=== PATIENT | male | born 1990 | race Caucasian/White ===

== ENCOUNTER 2019-04-27 18:33 | Emergency (ER) | payer OTHER, SELFPAY ==
[2019-04-27 18:35] VITALS: BP 145/89; PULSE 97; RESP 21; TEMP 37.1; O2SAT 100; BMI 21.7
[2019-04-27] MEDS: SODIUM CHLORIDE 0.9% 1,000 ML 1000 ML IV (18:58)
[2019-04-27 19:03] LABS: Add Manual Diff / Slide Review NO; Basophils Absolute Auto 100 /uL (0-100); Basophils Percent Auto 0.9 % (0-2); Eosinophils Absolute Auto 200 /uL (0-450); Eosinophils Percent Auto 1.6 % (2-4); Hematocrit 44.5 % (41-53); Hemoglobin 15.1 g/dL (13.5-17.5); Lymphocytes Absolute Auto 2100 /uL (1100-4500); Lymphocytes Percent Auto 21.6 % (25-40); Mean Corpuscular HGB Conc 33.8 % (30-36); Mean Corpuscular Hemoglobin 29.8 PG (26-34); Monocytes Absolute Auto 800 /uL (0-900); Monocytes Percent Auto 7.9 % (3-14); Neutrophils Absolute Auto 6700 /uL (1500-7000); Platelet Count 275 X10^3/uL (150-400); Red Blood Cell Count 5.06 X10^6/uL (4.5-5.9); Red Cell Distribution Width 12.5 % (11.6-14.8); White Blood Cell Count 9.8 X10^3/uL (4.5-11.0)
--- NOTE | 2019-04-27 19:08 | ED_ITS ---
HPI - Syncope General Chief Complaint: Syncope Stated Complaint: loss conciousness Time Seen by Provider: 04/27/19 19:08 Source: patient and family Mode of arrival: ambulatory Limitations: no limitations History of Present Illness HPI narrative: 28-year-old male here with friends for evaluation after prior to arrival he had what appeared to be a syncopal event. Patient states that he was sitting at a table ready to eat dinner. He stated that he started to feel hot. He stated the next thing he remembers was other his friends asking him if he was okay. He denies any other associated symptoms to include chest pain or palpitations or ringing in his ears. No vomiting. He did not fall out of his chair. No loss of bowel or bladder. Did not bite his tongue. He has no prior history of seizures. His friends state that the event lasted 30-45 seconds but they are unsure the exact time. Patient states that he felt like he was back to normal very quickly after the event. He has never had anything like this before. The time my evaluation patient had no symptoms. Related Data Allergies Allergy/AdvReac Type Severity Reaction Status Date / Time No Known Drug Allergies Allergy Verified 04/27/19 18:42 Review of Systems Constitutional Denies chills, Denies fever(s), Denies headache(s), Denies lethargy and Denies malaise Eyes Denies change in vision ENT Ears, Nose, Mouth, and Throat: Reports dizziness and Denies headache(s) Cardiovascular Denies chest pain, Reports diaphoresis (Prior to the event), Reports syncope, Denies rapid heart rate, Denies edema, Denies irregular heart rhythm, Reports lightheadedness (Prior to the event), Denies palpitations, Denies dyspnea and Denies slow heart rate Respiratory Denies cough, Denies pain with cough, Denies dyspnea and Denies wheezing Gastrointestinal Gastrointestinal: Denies abdominal pain, Denies nausea and Denies vomiting Musculoskeletal Denies myalgias and Denies arthralgias Integumentary/Breasts Denies rash Neurologic Reports dizziness, Reports syncope, Denies headache(s), Denies convulsions and Denies paresthesias Endocrine Denies palpitations Hematologic/Lymphatic Denies easy bleeding and Denies easy bruising Allergic/Immunologic Denies wheezing [facility] Medical History Patient denies medical problems (Acute) Social History Smoking Status: Never smoker Social History Smoking Status: Never smoker Exam Initial Vital Signs Initial Vital Signs: Vital Signs Temperature 98.7 F 04/27/19 18:35 Pulse Rate 97 H 04/27/19 18:35 Respiratory Rate 21 04/27/19 18:35 Blood Pressure 145/89 H 04/27/19 18:35 Pulse Oximetry 100 04/27/19 18:35 Const General: cooperative, healthy appearing, comfortable, well developed, well groomed and No acute distress Orientation: alert and oriented x3 HENMT Head: normal to inspection and normocephalic Eyes Pupils: PERRL EOM: EOM intact bilaterally Resp Effort & Inspection: normal respiratory effort Auscultation: clear to auscultation bilaterally Cardio Rate: regular rate Rhythm: regular rhythm GI Inspection: non-distended Palpation: soft, No firm and No tender Skin Lesions: no lesions Rashes: no rashes Neuro General: alert, awake and oriented x3 Cranial Nerves: CN's II-XI intact bilaterally Cognition: normal cognition Speech: speech normal Gait: normal gait Motor: muscle tone normal throughout Sensory Exam: no sensory deficits noted Extrem General: normal to inspection, capillary refill normal and No edema Psych Appearance: grossly normal and well kempt Scores GCS Hasty coma scale eye opening: Spontaneous Jimmy coma scale verbal response: Orientated Hasty coma scale motor response: Obey commands Hasty coma scale total score: 15 Course Orders Ordered: ED Orders 04/27/19 18:36 EKG-12 Lead Stat 04/27/19 18:50 Complete Blood Count AUTO DIFF Stat Comprehensive Metabolic Panel Stat Troponin & CK Cardiac Panel Stat Discontinued Medications Sodium Chloride (Normal Saline 0.9%) 1,000 mls @ 1,000 mls/hr IV BOLUS ONE Stop: 04/27/19 19:43 Last Infusion: 04/27/19 20:00 Dose: 0 mls/hr Admin: 04/27/19 18:58 Dose: 1,000 mls/hr Vital Signs - 8 hr 04/27/19 18:35 04/27/19 19:30 04/27/19 20:01 Temperature 98.7 F 98.8 F Pulse Rate 97 H 89 86 Respiratory Rate 21 14 18 Blood Pressure 145/89 H 140/91 H Blood Pressure [Right Arm] 140/91 H Pulse Oximetry 100 100 100 MDM - Syncope Lab Data Attestation: I reviewed the patient's lab results. Result diagrams: 04/27/19 18:50 04/27/19 18:50 Lab Results 04/27/19 04/27/19 Range/Units 18:50 18:50 WBC 9.8 (4.5-11.0) X10^3/uL RBC 5.06 (4.5-5.9) X10^6/uL Hgb 15.1 (13.5-17.5) g/dL Hct 44.5 (41-53) % MCV 88.0 (80-100) fL MCH 29.8 (26-34) PG MCHC 33.8 (30-36) % RDW 12.5 (11.6-14.8) % Plt Count 275 (150-400) X10^3/uL Neut % (Auto) 68.0 (50-75) % Lymph % (Auto) 21.6 L (25-40) % [place] % (Auto) 7.9 (3-14) % Eos % (Auto) 1.6 L (2-4) % Baso % (Auto) 0.9 (0-2) % Neut # (Auto) 6700 (2875-0350) /uL Lymph # (Auto) 2100 (8985-1842) /uL [place] # (Auto) 800 (0-900) /uL Eos # (Auto) 200 (0-450) /uL Baso # (Auto) 100 (0-100) /uL Sodium 137 (137-145) mmol/L Potassium 3.3 L (3.4-5.1) mmol/L Chloride 100 (98-107) mmol/L Carbon Dioxide 23 (22-32) mmol/L BUN 15 (9-20) mg/dL Creatinine 1.10 (0.66-1.25) mg/dL Estimated GFR > 60.0 (>60) mL/min BUN/Creatinine Ratio 13.6 (6-22) Glucose 142 H (70-100) mg/dL Calcium 9.0 (8.4-10.2) mg/dL Total Bilirubin 0.6 (0.2-1.3) mg/dL AST 23 (17-59) IU/L ALT 22 (21-72) IU/L Alkaline Phosphatase 41 (38-126) U/L Total Creatine Kinase 109 (55-170) U/L CK-MB (CK-2) 0.40 (<2.37) ng/mL CK-MB (CK-2) Rel Index 0.4 L (1.5-5.0) % Troponin I < 0.012 (0.01-0.034) ng/mL Total Protein 7.4 (6.3-8.2) g/dL Albumin 4.7 (3.5-5.0) g/dL Globulin 2.7 (1.7-4.1) g/dL Albumin/Globulin Ratio 1.7 (1.0-2.8) ECG Data Attestation: I personally reviewed and interpreted this ECG as follows: Prior ECG tracings: not available for review Interpretation: Sinus rhythm Normal axis P.r. interval 159 milliseconds Normal QRS Normal QTC No ST T wave changes MDM Narrative Medical decision making narrative: Patient is a normal exam here in the emergency department. Labs are normal. EKG is unremarkable. Symptoms do not sound like seizure. It appears he did not lose muscle tone because he was able to continue to sit in the chair during the event. No vomiting. He did have a period of feeling hot prior to the event however no palpitations. Low suspicion for CVA. Low suspicion for TIA. I do suspect a vasovagal based on his history and physical exam. Discussed this with the patient. Will have him follow up with his primary provider. He was given return precautions. He expressed understanding and agreement with plan. Discharge Plan Departure Patient Disposition: Home Clinical Impression: Syncope Qualifiers: Syncope type: unspecified Qualified Code(s): R55 - Syncope and collapse Discharge Date/Time: 04/27/19 20:02 Interventions: ED Discharge Assessment Last Done: 04/27/19 20:01 Instructions: DI for Syncope in Adults (Fainting) Activity Restrictions/Additional Instructions: I highly recommend that you may contact with a primary care provider where you live. You have no restrictions with regard to activity. Return to the emergency department for any new or worsening symptoms
[2019-04-27 19:12] LABS: Alanine Aminotransferase 22 IU/L (21-72); Albumin 4.7 g/dL (3.5-5.0); Albumin Globulin Ratio 1.7 (1.0-2.8); Alkaline Phosphatase 41 U/L (38-126); Aspartate Aminotransferase 23 IU/L (17-59); BUN Creatinine Ratio 13.6 (6-22); Bilirubin Total 0.6 mg/dL (0.2-1.3); Blood Urea Nitrogen 15 mg/dL (9-20); Carbon Dioxide 23 mmol/L (22-32); Chloride 100 mmol/L (98-107); Creatine Kinase 109 U/L (55-170); Estimated Glomerular Filt Rate > 60.0 mL/min (>60); Globulin 2.7 g/dL (1.7-4.1); Glucose 142 mg/dL (70-100); HEMOLYSIS < 15 (0-50); Potassium 3.3 mmol/L (3.4-5.1); Sodium 137 mmol/L (137-145); Total Protein 7.4 g/dL (6.3-8.2)
[2019-04-27 19:24] LABS: Troponin I < 0.012 ng/mL (0.01-0.034)
[2019-04-27 19:28] LABS: CKMB % Relative Index 0.4 % (1.5-5.0)
[2019-04-27 19:30] VITALS: BP 140/91; PULSE 89; RESP 14; O2SAT 100
[2019-04-27 20:01] VITALS: BP 140/91; PULSE 86; RESP 18; TEMP 37.1; O2SAT 100
== END 2019-04-27 20:02 | disposition home or self-care (01) ==
PROVIDERS: Emergency Provider Emergency Medicine
DX: R55 Syncope and collapse (principal)
CPT/HCPCS: 36591; 80053; 82550; 82553; 84484; 85025; 93005; 96360; 99283; 99284